=== PATIENT | female | born 1955 | race Caucasian/White ===

== ENCOUNTER 2018-06-29 19:26 | Emergency (ER) | payer MEDICARE ==
[~2018-06-29] VITALS: Ht 165.1 cm; Wt 94.5 kg
[2018-06-29 19:32] VITALS: Ht 165.1 cm; Wt 94.5 kg
[2018-06-29] MEDS ORDERED: TRIBENZOR 40-11 EACH PO (19:35)
[2018-06-29] MEDS ORDERED: NORMODYNE / TR100 MG PO (19:35)
[2018-06-29] MEDS ORDERED: HYDRALAZINE HCL50 MG PO (19:35)
[2018-06-29] MEDS ORDERED: PLAVIX75 MG PO (19:35)
[2018-06-29] MEDS ORDERED: NORCO 7.5/325 T1 TA1 PO (20:23)
[2018-06-29 20:45] VITALS: BP 132/85
== END 2018-06-29 20:46 | disposition home or self-care (01) ==
LOC: D.ER 19:26
DX: S52.542A Smith's fracture of left radius, initial encounter for closed fracture (principal); W18.31XA Fall on same level due to stepping on an object, initial encounter; Y93.89 Activity, other specified; Y92.410 Unspecified street and highway as the place of occurrence of the external cause; I10 Essential (primary) hypertension

== ENCOUNTER → 2020-05-25 11:15 | Outpatient (CLI) | payer MEDICARE ==
[2018-06-29 19:32] VITALS: BMI 34.6
[~2020-05-25 11:15] MED LIST: HYDRALAZINE HCL50 MG PO; NORCO 7.5/325 T1 TA1 PO; NORMODYNE / TR100 MG PO; PLAVIX75 MG PO; TRIBENZOR 40-11 EACH PO
== END | disposition home or self-care (01) ==
LOC: D.LABREF 11:15
PROVIDERS: ATTEND Internal Medicine Gastroenterology
DX: R19.7 Diarrhea, unspecified (principal)

== ENCOUNTER → 2020-06-07 08:32 | Outpatient (CLI) | payer BC ==
[2018-06-29 19:32] VITALS: BMI 34.6
== END | disposition home or self-care (01) ==
LOC: D.US 08:32
PROVIDERS: ATTEND Nurse Practitioner
DX: R10.13 Epigastric pain (principal)

== ENCOUNTER → 2020-06-18 07:06 | Outpatient (CLI) | payer BC ==
[2018-06-29 19:32] VITALS: BMI 34.6
== END | disposition home or self-care (01) ==
LOC: D.NM 07:06
PROVIDERS: ATTEND Nurse Practitioner
DX: R10.13 Epigastric pain (principal)